=== PATIENT | male | born 1995 ===

== ENCOUNTER 2017-08-15 09:08 | Day surgery (SDC) | payer OTHER | END 2017-08-15 16:15 | disposition home or self-care (01) | LOC: CIR.AMB 09:08 | DX: S56.812A Strain of other muscles, fascia and tendons at forearm level, left arm, initial encounter (principal); G56.22 Lesion of ulnar nerve, left upper limb ==

== ENCOUNTER 2024-04-23 09:00 | Day surgery (SDC) | payer OTHER ==
[2024-04-21 08:56] LABS: URINE APPEARANCE Clear; URINE BILIRRUBIN Negative (NEGATIVE); URINE BLOOD Negative; URINE COLOR Yellow; URINE GLUCOSE Negative (NEGATIVE); URINE KETONE Negative (NEGATIVE); URINE LEUKOCYTE Negative; URINE NITRATE Negative; URINE PROTEIN Negative (NEGATIVE); URINE UROBILINOGEN 0.2 E.U./dl
[2024-04-21 08:56] LABS: HEMATOCRIT 43.3 % (39.0-48.0); HEMOGLOBIN 15.1 g/dL (13-16.00); MEAN CELL VOLUME 90.2 fL (80.0-100.00); MEAN CORPUSCULAR HEMOGLOBIN 31.4 pg (27.00-32.0); MEAN CORPUSCULAR HGB CONC 34.8 g/dl (32.0-36.0); PLATELET COUNT 299 K/uL (150-450); RED CELL DISTRIBUTION WIDTH 11.9 % (11.5-14.5)
[2024-04-21 08:59] LABS: URINE WBC 7.3 uL (0.0-23.2)
[2024-04-21 09:04] LABS: URINE BACTERIA 2.4 uL (0.0-1933); URINE EPITHELIAL CELLS 0.9 uL (0.0-38.8)
[2024-04-21 09:17] LABS: INR 1.01; PARTIAL THROMBOPLASTIN TIME 28.9 SECONDS (22.0-34.0)
[2024-04-21 09:28] LABS: ALBUMIN 4.2 gm/dL (3.4-5.0); BILIRUBIN TOTAL 0.52 mg/dL (0.3-1.2); CREATININE SERUM 1.16 mg/dL (0.70-1.30); GFR 75.52; GLOBULINA 3.7 G/DL (2.4-3.5); POTASSIUM 4.02 mEq/L (3.5-5.1); TOTAL PROTEIN 7.9 gm/dL (6.4-8.2)
[2024-04-23] MEDS ORDERED: CEFAZOLIN SODIUM 1,000 MG VIAL ONE (10:15)
[2024-04-23] MEDS ORDERED: KETOROLAC TROMETHAMINE 30 MG VIAL ONE (10:48)
== END 2024-04-23 14:55 | disposition home or self-care (01) ==
LOC: CIR.AMB 09:00
PROVIDERS: ATTEND Orthopaedic Surgery
DX: M75.121 Complete rotator cuff tear or rupture of right shoulder, not specified as traumatic (principal)